=== PATIENT | female | born 1980 | race Caucasian/White ===

== ENCOUNTER 2018-10-09 13:56 | Outpatient (CLI) | payer BC ==
--- NOTE | 2018-10-09 15:42 | CT ---
CT ABDOMEN AND PELVIS NONCONTRAST: History: Right flank pain. FINDINGS: The right renal collecting system and ureter are moderately distended to the level of a 0.6 cm calcul us in the distal right ureter adjacent to the ureterovesicular junction. The left renal collecting system and ureter are decompressed without stone evident. Lack of contrast decreases sensitivity of the exam for other abnormalities. Bilateral breast prosthes es partially visualized. No evidence of bowel obstruction. IMPRESSION: Partial obstruction at a 6 mm distal right ureteral calculus. POS: [facility]
== END 2018-10-09 13:57 | disposition home or self-care (01) ==
LOC: SCSCT 13:56
PROVIDERS: ATTEND Family Medicine
DX: N20.0 Calculus of kidney (principal); N20.1 Calculus of ureter
CPT/HCPCS: 74176

== ENCOUNTER 2018-10-21 10:12 | Outpatient (CLI) | payer BC ==
[2018-10-21 12:56] LABS: Hemoglobin 13.2 g/dL (12.0-16.0); Mean Corpuscular HGB CONC 32.9 g/dL (32.0-36.0); Mean Corpuscular Hemoglobin 27.8 pg (27.0-31.0); Mean Corpuscular Volume 84.4 fL (78.0-98.0); Mean Platelet Volume 9.7 fL (7.4-10.4); Platelet Count 187 thou/uL (130-400); RBC Distribution Width 14.2 % (11.5-14.5); Red Blood Cell (RBC) Count 4.76 mill/uL (4.20-5.40); White Blood Cell (WBC) Count 6.5 thou/uL (4.8-10.8)
[2018-10-21 13:05] LABS: PTT 29.3 SEC (22.9-36.1); Prothrombin Time 13.6 SEC (12.0-14.7)
[2018-10-21 13:15] LABS: Anion Gap 9 mmol/L (10-20); BUN (Urea Nitrogen) 14 mg/dL (7.0-18.7); Calc. Creatinine Clearance 0 mL/min (70-130); Calcium 9.7 mg/dL (7.8-10.44); Carbon Dioxide 28 mmol/L (22-29); Chloride 105 mmol/L (98-107); Estimated GFR-MDRD 83; Glucose 72 mg/dL (70-105); Potassium 4.3 mmol/L (3.5-5.1); Sodium 138 mmol/L (136-145)
== END 2018-10-21 10:13 | disposition home or self-care (01) ==
LOC: LABBT 10:12
PROVIDERS: ATTEND Urology
DX: Z01.818 Encounter for other preprocedural examination (principal); N20.0 Calculus of kidney
CPT/HCPCS: 80048; 81001; 85027; 85610; 85730; 87086; 93005; 93010

== ENCOUNTER 2019-04-21 07:49 | Outpatient (CLI) | payer BC ==
--- NOTE | 2019-04-21 08:30 | ULT ---
RENAL ULTRASOUND: 04/21/19 HISTORY: Renal calculi removed six months ago. Follow-up exam. COMPARISON: None. TECHNIQUE: Sagittal and transverse imaging of the kidneys performed. FINDINGS: RIGHT KIDNEY: Renal cortical thinning. No hydronephrosis. Right kidney measures 5.0 x 4.1 x 8.3 cm. LEFT KIDNEY: There is a normal appearing renal cortex. No hydronephrosis. Left kidney measures 6.2 x 5.0 x 9.5 cm. Urinary bladder is unremarkable. IMPRESSION: 1. No hydronephrosis. 2. No sonographic evidence of a renal calculus. POS: [facility]
[2019-04-21 08:31] LABS: Bilirubin Small (Negative); Blood, Urine Negative (Negative); Clarity Cloudy (Clear); Glucose, Urine (Dipstick) Negative (Negative); Leukocyte Negative (Negative); Nitrite Negative (Negative); Protein, Urine (Dipstick) Negative (Neg-Trace); Urobilinogen 0.2 mg/dL (Less than 2)
--- NOTE | 2019-04-21 08:31 | RAD ---
EXAM: Single view of the abdomen HISTORY: Kidney stones. Recent lithotripsy 6 months ago COMPARISON: None FINDINGS: Single view of the abdomen shows a nonspecific, nonobstructive bowel gas pattern. No suspi cious calcifications are seen. The bones are unremarkable. IMPRESSION: Unremarkable exam
[2019-04-21 08:34] LABS: Anion Gap 12 mmol/L (10-20); BUN (Urea Nitrogen) 13 mg/dL (7.0-18.7); Calc. Creatinine Clearance 0 mL/min (70-130); Calcium 9.2 mg/dL (7.8-10.44); Carbon Dioxide 25 mmol/L (22-29); Chloride 108 mmol/L (98-107); Estimated GFR-MDRD 69; Glucose 95 mg/dL (70-105); Potassium 3.6 mmol/L (3.5-5.1); Sodium 141 mmol/L (136-145); Uric Acid 5.6 mg/dL (2.6-6.0)
[2019-04-21 08:40] LABS: Urine Culture Reflex No No
[2019-04-21 08:56] LABS: Bacteria/HPF 1+ HPF (None Seen); Crystals/HPF RARE AMORPH URATES HPF (Negative); RBC/HPF 0-3 HPF (0-3)
== END 2019-04-21 07:50 | disposition home or self-care (01) ==
LOC: SCSULT 07:49
PROVIDERS: ATTEND Urology
DX: N20.0 Calculus of kidney (principal)
CPT/HCPCS: 36415; 74018; 76770; 80048; 81001; 83970; 84550

== ENCOUNTER 2025-06-22 07:43 | Outpatient (CLI) | payer BC | END 2025-06-22 07:44 | disposition home or self-care (01) | LOC: SCSMRI 07:43 | PROVIDERS: ATTEND Orthopaedic Surgery | DX: S73.192A Other sprain of left hip, initial encounter (principal); D25.9 Leiomyoma of uterus, unspecified; M25.352 Other instability, left hip ==